=== PATIENT | female | born 1990 | race Caucasian/White ===

== ENCOUNTER 2020-05-15 17:27 | Emergency (ER) | payer OTHER ==
[~2020-05-15 17:27] MED LIST: PREDNISONE 20 M20 MG PO; ZITHROMAX250 MG PO; ZYRTEC10 M3 PO
[2020-05-15 19:42] LABS: HEMOGLOBIN 14.2 gm/dl (12.3-15.3); RED BLOOD COUNT 5.21 M/UL (4.00-5.10); WHITE BLOOD COUNT 5.3 K/UL (4.5-11.0)
[2020-05-15 19:59] LABS: BUN/CREATININE RATIO 16 (0-10)
[2020-05-15] MEDS ORDERED: ZOFRAN ODT 4 MG4 MG PO (21:34)
== END 2020-05-16 01:00 | disposition home or self-care (01) ==
LOC: ER1 17:27
PROVIDERS: Emergency Medicine
DX: U07.1 COVID-19 (principal); I10 Essential (primary) hypertension
CPT/HCPCS: 71045; 80053; 81001; 82550; 82553; 83605; 83690; 83735; 83874; 84484; 84703; 85025; 85379; 93005; 96374; 99285; J2405; J7030; M0239

== ENCOUNTER → 2021-07-21 | Outpatient (CLI) | payer OTHER ==
[~2021-07-21] MED LIST changes: +ZOFRAN ODT 4 MG4 MG PO
== END ==
LOC: SLEEP 09:59
DX: G47.33 Obstructive sleep apnea (adult) (pediatric) (principal); G47.00 Insomnia, unspecified
CPT/HCPCS: 95811

== ENCOUNTER → 2021-10-30 | Outpatient (CLI) | payer OTHER | LOC: LAB 12:05 | DX: Z20.822 Contact with and (suspected) exposure to COVID-19 (principal) | CPT/HCPCS: U0003 ==

== ENCOUNTER → 2021-12-30 | Outpatient (CLI) | payer OTHER | LOC: KOH-I 10:17 | DX: M25.512 Pain in left shoulder (principal) | CPT/HCPCS: 73030 ==